=== PATIENT | male | born 1960 | race Caucasian/White ===

== ENCOUNTER 2016-08-13 10:23 | Outpatient (CLI) | payer OTHER ==
[2016-08-13 10:46] LABS: Prothrombin Time 34.1 SEC (12.0-14.7)
== END 2016-08-13 10:24 | disposition home or self-care (01) ==
LOC: BURLAB 10:23
PROVIDERS: ATTEND Internal Medicine Interventional Cardiology
DX: Z51.81 Encounter for therapeutic drug level monitoring (principal); I48.91 Unspecified atrial fibrillation; Z79.01 Long term (current) use of anticoagulants
CPT/HCPCS: 36415; 85610

== ENCOUNTER 2016-09-28 13:14 | Emergency (ER) | payer OTHER ==
[2016-09-28 13:58] LABS: #Basophils 0.1 thou/uL (0.0-0.2); #Eosinphils 0.3 thou/uL (0.0-0.7); #Lymphocytes 1.9 thou/uL (1.20-3.40); #Monocytes 0.9 thou/uL (0.11-0.59); #Neutrophils 5.7 thou/uL (1.40-6.50); %Basophils 0.8 % (0.0-1.0); %Eosinophils 3.8 % (0.0-10.0); %Monocytes 10.5 % (0.0-10.0); Hematocrit 48.2 % (42.0-52.0); Mean Platelet Volume 7.7 fL (7.4-10.4); Red Blood Cell (RBC) Count 5.35 mill/uL (4.70-6.10)
[2016-09-28 14:12] LABS: Prothrombin Time 35.3 SEC (12.0-14.7)
[2016-09-28 14:16] LABS: ALT (SGPT) 115 U/L (0-55); AST (SGOT) 77 U/L (5-34); Alkaline Phosphatase 79 U/L (40-150); Anion Gap 11 mmol/L (10-20); BUN (Urea Nitrogen) 19 mg/dL (8.4-25.7); Bilirubin, Total 0.5 mg/dL (0.2-1.2); CK (CPK) 73 U/L (30-200); Calc. Creatinine Clearance 0 mL/min (70-130); Calcium 9.3 mg/dL (7.8-10.44); Carbon Dioxide 27 mmol/L (22-29); Chloride 107 mmol/L (98-107); Estimated GFR-MDRD 81; Globulin 3.2 g/dL (2.4-3.5); Lipase 26 U/L (8-78); Protein, Total 7.2 g/dL (6.0-8.3)
--- NOTE | 2016-09-28 22:01 | RAD ---
CHEST TWO VIEWS: Date: 09-28-16 Comparison: 11-10-13 FINDINGS: The heart size is normal for body habitus. There is no mediastinal widening or shift. There is no vascular congestion or edema. Streaking in the left lower chest is either scarring or atelectasis. There is an area of focal pleural thickening along the left lateral hemithorax. This could be old o r it could be in response to injury. Dedicated rib films would be needed in this area to assess if there was a fracture here or not, though my understanding is the patient's pain is on the right side . There were some irregularities of the several of the right posterior ribs, approximately ribs 8 a nd 9. I cannot tell if this is a new or old injury. The lateral view shows some mild degenerative changes in the spine. IMPRESSION: Various rib findings as listed above and pleural thickening. If pain persists, then dedicated rib f ilms of the affected side should be obtained. POS: HOME
== END 2016-09-28 14:40 | disposition home or self-care (01) ==
LOC: BURERS 13:14
DX: R07.9 Chest pain, unspecified (principal); F17.210 Nicotine dependence, cigarettes, uncomplicated; W19.XXXA Unspecified fall, initial encounter
CPT/HCPCS: 36415; 71020; 80053; 82550; 83690; 85025; 85610; 93005

== ENCOUNTER 2016-10-07 09:17 | Outpatient (CLI) | payer OTHER | END 2016-10-07 09:18 | disposition home or self-care (01) | LOC: BURLAB 09:17 | PROVIDERS: ATTEND Internal Medicine Interventional Cardiology | DX: I48.91 Unspecified atrial fibrillation (principal) | CPT/HCPCS: 36415; 85610 ==

== ENCOUNTER 2016-10-22 14:07 | Outpatient (CLI) | payer OTHER ==
[2016-10-22 14:33] LABS: INR-International Normal Ratio 2.8
== END 2016-10-22 14:08 | disposition home or self-care (01) ==
LOC: BURLAB 14:07
PROVIDERS: ATTEND Internal Medicine Interventional Cardiology
DX: I48.91 Unspecified atrial fibrillation (principal)
CPT/HCPCS: 36415; 85610

== ENCOUNTER 2016-10-29 14:15 | Outpatient (CLI) | payer OTHER ==
[2016-10-29 14:54] LABS: INR-International Normal Ratio 1.6; Prothrombin Time 19.5 SEC (12.0-14.7)
== END 2016-10-29 14:16 | disposition home or self-care (01) ==
LOC: BURLAB 14:15
PROVIDERS: ATTEND Internal Medicine Cardiovascular Disease
DX: I48.91 Unspecified atrial fibrillation (principal)
CPT/HCPCS: 36415; 85610

== ENCOUNTER 2016-11-05 12:38 | Outpatient (CLI) | payer OTHER ==
[2016-11-05 13:02] LABS: INR-International Normal Ratio 1.5; Prothrombin Time 18.7 SEC (12.0-14.7)
== END 2016-11-05 12:39 | disposition home or self-care (01) ==
LOC: BURLAB 12:38
PROVIDERS: ATTEND Internal Medicine Cardiovascular Disease
DX: I48.91 Unspecified atrial fibrillation (principal)
CPT/HCPCS: 36415; 85610

== ENCOUNTER 2016-11-12 14:47 | Outpatient (CLI) | payer OTHER ==
[2016-11-12 15:08] LABS: INR-International Normal Ratio 1.8; Prothrombin Time 21.4 SEC (12.0-14.7)
== END 2016-11-12 14:48 | disposition home or self-care (01) ==
LOC: BURLAB 14:47
PROVIDERS: ATTEND Internal Medicine Cardiovascular Disease
DX: I48.91 Unspecified atrial fibrillation (principal)
CPT/HCPCS: 36415; 85610

== ENCOUNTER 2017-08-10 20:44 | Emergency (ER) | payer OTHER ==
[2017-08-10] MEDS ORDERED: traMADol HCl 50 MG TAB ONE (21:09)
[2017-08-10] MEDS ORDERED: Clindamycin 150 MG CAP ONE (21:09)
== END 2017-08-10 21:15 | disposition home or self-care (01) ==
LOC: BURERS 20:44
DX: K04.7 Periapical abscess without sinus (principal); K02.9 Dental caries, unspecified; I48.91 Unspecified atrial fibrillation; I10 Essential (primary) hypertension; J44.9 Chronic obstructive pulmonary disease, unspecified; F17.210 Nicotine dependence, cigarettes, uncomplicated; Z79.899 Other long term (current) drug therapy
CPT/HCPCS: 99282; J2001

== ENCOUNTER 2017-09-19 18:24 | Emergency (ER) | payer OTHER ==
[2017-09-19] MEDS ORDERED: methylPREDNISolone Sod Succ/PF 125 MG/2 ML VIAL ONE (18:51)
[2017-09-19] MEDS ORDERED: Acetaminophen 500 MG TAB ONE (18:51)
[2017-09-19] MEDS ORDERED: Albuterol Sulfate 1.25 MG/3 ML NEB ONE ×3 (19:47→21:21)
[2017-09-19] MEDS ORDERED: cefTRIAXone\\ROCEPHIN 2 GM VIAL ONE (20:11)
[2017-09-19 20:41] LABS: Hemoglobin 15.1 g/dL (14.0-18.0); Mean Corpuscular HGB CONC 35.3 g/dL (32.0-36.0); Mean Corpuscular Hemoglobin 32.2 pg (27.0-31.0); Mean Corpuscular Volume 91.3 fl (80.0-94.0); Mean Platelet Volume 9.5 fL (7.4-10.4); Platelet Count 105 thou/uL (130-400); RBC Distribution Width 12.5 % (11.5-14.5); Red Blood Cell (RBC) Count 4.69 mill/uL (4.70-6.10); White Blood Cell (WBC) Count 5.1 thou/uL (4.8-10.8)
[2017-09-19 20:43] LABS: ALT (SGPT) 127 U/L (8-55); AST (SGOT) 109 U/L (5-34); Albumin 3.7 g/dL (3.5-5.0); Alkaline Phosphatase 48 U/L (40-150); Anion Gap 15 mmol/L (10-20); BUN (Urea Nitrogen) 17 mg/dL (8.4-25.7); Bilirubin, Total 0.6 mg/dL (0.2-1.2); Calc. Creatinine Clearance 0 mL/min (70-130); Calcium 8.4 mg/dL (7.8-10.44); Carbon Dioxide 22 mmol/L (22-29); Chloride 103 mmol/L (98-107); Estimated GFR-MDRD Greater than 90; Glucose 101 mg/dL (70-105); Potassium 4.3 mmol/L (3.5-5.1); Protein, Total 6.7 g/dL (6.0-8.3); Sodium 136 mmol/L (136-145)
[2017-09-19 20:44] LABS: CKMB 1.3 ng/mL (0-6.6); Troponin I 0.018 ng/mL (< 0.028)
[2017-09-19 20:57] LABS: Band 10 % (5-11); Lymphocytes 9 % (21-51); MDiff Complete? YES; Monocytes 6 % (0-10); Neutrophil 73 % (42-75); PLT Morphology Comment Appears Decreased; RBC Morphology Normal
--- NOTE | 2017-09-19 23:21 | RAD ---
PORTABLE CHEST: Date: 09-19-17 An AP portable film at 1836 is compared with an 03-03-17 study. FINDINGS: The heart is upper normal in size but probably no different than before considering this is an AP pro jection. The right pulmonary artery seems a little more prominent and there is hump along the upper l eft cardiac border that is in the general vicinity of the left atrial appendage, and it seems slightl y lower than expected for a pulmonary artery, but it still could be a prominent left pulmonary artery . I see an overlying metallic device that was not present before so clinical history may be useful he re. The vasculature seems slightly more prominent than it was last year. There is some mild increase in r ight basilar haziness. There are no large effusions. The trachea is midline. IMPRESSION: 1. Some increased prominence of at least the right hilum, if not the left, and perhaps all vessels. I cannot exclude borderline congestive changes. 2. Relative increase in right basilar markings compared to last year. 3. Small hump seen along the left upper cardiac border that was not present before. See above. Comment: The clinical history that has intervened since the last study is probably going to be significant in this patient and should be obtained. At the very least, a follow PA and lateral chest view should be considered. There is a change that the patient might ultimately need a CT but that is probably premat ure, particularly if one learns the rest of the story with any cardiac history. CODE T POS: HOME
== END 2017-09-19 22:53 | disposition short-term general hospital (02) ==
LOC: BURERS 18:24
DX: J44.1 Chronic obstructive pulmonary disease with (acute) exacerbation (principal); J11.1 Influenza due to unidentified influenza virus with other respiratory manifestations; F17.210 Nicotine dependence, cigarettes, uncomplicated; I10 Essential (primary) hypertension; I48.91 Unspecified atrial fibrillation; Z79.02 Long term (current) use of antithrombotics/antiplatelets; Z79.899 Other long term (current) drug therapy
CPT/HCPCS: 36415; 71045; 80053; 80162; 82553; 83605; 83880; 84484; 85025; 87040; 94640; 94760; 96365; 96372; J0696; J2930; J7620

== ENCOUNTER → 2017-09-30 | Emergency (ER) | payer OTHER ==
[~2017-09-30] MED LIST: methylPREDNISolone Sod Succ/PF 125 MG/2 ML VIAL ONE
[2017-09-30 11:59] LABS: #Basophils 0.1 thou/uL (0.0-0.2); #Eosinphils 0.1 thou/uL (0.0-0.7); #Lymphocytes 2.5 thou/uL (1.20-3.40); #Monocytes 0.8 thou/uL (0.11-0.59); #Neutrophils 3.9 thou/uL (1.40-6.50); %Basophils 0.7 % (0.0-1.0); %Eosinophils 1.9 % (0.0-10.0); %Lymphocytes 33.6 % (21.0-51.0); %Monocytes 10.8 % (0.0-10.0); Hemoglobin 17.8 g/dL (14.0-18.0); Mean Corpuscular HGB CONC 34.2 g/dL (32.0-36.0); Mean Corpuscular Hemoglobin 30.3 pg (27.0-31.0); Mean Corpuscular Volume 88.8 fl (80.0-94.0); Mean Platelet Volume 9.7 fL (7.4-10.4); Platelet Count 261 thou/uL (130-400); RBC Distribution Width 11.7 % (11.5-14.5); Red Blood Cell (RBC) Count 5.88 mill/uL (4.70-6.10); White Blood Cell (WBC) Count 7.4 thou/uL (4.8-10.8)
[2017-09-30 12:16] LABS: ALT (SGPT) 196 U/L (8-55); AST (SGOT) 66 U/L (5-34); Albumin 3.9 g/dL (3.5-5.0); Alkaline Phosphatase 63 U/L (40-150); Anion Gap 11 mmol/L (10-20); BUN (Urea Nitrogen) 19 mg/dL (8.4-25.7); Bilirubin, Total 0.9 mg/dL (0.2-1.2); Calc. Creatinine Clearance 0 mL/min (70-130); Carbon Dioxide 27 mmol/L (22-29); Chloride 108 mmol/L (98-107); Estimated GFR-MDRD 90; Globulin 3.6 g/dL (2.4-3.5); Glucose 104 mg/dL (70-105); Potassium 4.8 mmol/L (3.5-5.1); Protein, Total 7.5 g/dL (6.0-8.3); Sodium 141 mmol/L (136-145)
[2017-09-30 12:18] LABS: CKMB 1.4 ng/mL (0-6.6); Troponin I Less than 0.010 ng/mL (< 0.028)
--- NOTE | 2017-09-30 17:54 | RAD ---
PORTABLE CHEST: 09/30/17 An AP portable film at 1150 is compared with a 09/19/17 study. Cardiomegaly is about the same as before. There are no clear congestive findings or pleural effusions . The lungs are currently clear. The prominent bump seen in the left upper heart border is not as [place] today as previously. IMPRESSION: No definite acute finding. POS: HOME
== END ==
LOC: BURERS 11:44
DX: J44.1 Chronic obstructive pulmonary disease with (acute) exacerbation (principal); I10 Essential (primary) hypertension; I48.91 Unspecified atrial fibrillation; F17.210 Nicotine dependence, cigarettes, uncomplicated
CPT/HCPCS: 71045; 80053; 82553; 83880; 84484; 85025; 87040; 93005; 96374; J2930; J7620

== ENCOUNTER 2018-05-12 15:05 | Outpatient (CLI) | payer OTHER ==
--- NOTE | 2018-05-12 20:15 | RAD ---
STERNUM TWO VIEWS: 05/12/18 Oblique and lateral views show no evidence of sternal fracture. The manubriosternal joint was unremar kable. IMPRESSION: No significant findings. POS: HOME
--- NOTE | 2018-05-12 21:00 | RAD ---
CHEST TWO VIEWS: 05/12/18 Comparison is made with the 09/30/17 study. The heart remains normal in size. There is no vascular congestion or edema. No pleural effusions are seen. There is a small infiltrate in the lingula on the left that is not seen on the prior study. I w ould wonder about a possible fracture around the left 6th or 7th ribs, but this is not definite. This should be correlated with the site of any clinical pain. There is some mild increase in markings in the right base but no lobar consolidation on this side. No effusions are present. The lungs in genera l are hyperexpanded. Degenerative changes are seen in the mid to lower thoracic spine. IMPRESSION: 1. Lingular haziness. Cannot rule out a small infiltrate here. 2. Equivocal findings around the left 6th or 7th ribs laterally. If this correlates with the sit e of pain, then rib fractures might be possible. 3. Mildly hyperexpanded lungs. POS: HOME
== END 2018-05-12 15:06 | disposition home or self-care (01) ==
LOC: BURRAD 15:05
PROVIDERS: ATTEND Physician Assistant
DX: S29.9XXA Unspecified injury of thorax, initial encounter (principal); R07.89 Other chest pain; R91.8 Other nonspecific abnormal finding of lung field; J98.4 Other disorders of lung
CPT/HCPCS: 71046; 71120

== ENCOUNTER 2019-10-12 08:01 | Outpatient (CLI) | payer OTHER ==
--- NOTE | 2019-10-13 07:37 | ULT ---
GALLBLADDER ULTRASOUND: HISTORY:Hepatitis C FINDINGS: The liver demonstrates homogeneous echotexture without focal mass or intrahepatic biliary ductal dila tation. No gallstones, gallbladder wall thickening or pericholecystic fluid are seen. The right kidney is normal. The pancreas is not satisfactorily visualized due to overlying bowel gas. The common duct [id number] in diameter. No free fluid is seen in the Hwang's pouch. IMPRESSION: No significant abnormalities are seen.
== END 2019-10-12 08:02 | disposition home or self-care (01) ==
LOC: BURULT 08:01
PROVIDERS: ATTEND Physician Assistant Medical
DX: B18.2 Chronic viral hepatitis C (principal); Z12.11 Encounter for screening for malignant neoplasm of colon
CPT/HCPCS: 76705